=== PATIENT | male | born 1955 | race Caucasian/White ===

== ENCOUNTER 2016-08-25 10:18 | Observation (INO) | payer OTHER ==
[2016-08-26] MEDS ORDERED: FLOMAX0.4 MG PO (09:55)
[2016-08-26] MEDS ORDERED: OMEPRAZOLE20 MG PO (09:55)
[2016-08-26] MEDS ORDERED: LOTREL 5-20 MG1 EACH PO (09:56)
[2016-08-26] MEDS ORDERED: PROSCAR5 MG PO (09:56)
[2016-08-26] MEDS ORDERED: LORTAB 10-3251 EACH PO (09:59)
[2016-08-26] MEDS ORDERED: CIPRO500 MG PO (10:00)
--- NOTE | 2016-08-26 11:04 | NUR ---
0900 IV TO LEG BAG TEACHING DONE
[2016-09-01] MEDS ORDERED: FLOMAX0.4 MG PO (10:06)
[2016-09-01] MEDS ORDERED: OMEPRAZOLE20 MG PO (10:07)
[2016-09-01] MEDS ORDERED: PROSCAR5 MG PO (10:07)
[2016-09-01] MEDS ORDERED: LORTAB 10-3251 EACH PO (10:08)
[2016-09-01] MEDS ORDERED: LOTREL 5-20 MG1 EACH PO (10:08)
[2016-09-01] MEDS ORDERED: CIPRO500 MG PO (10:09)
== END 2016-08-26 10:00 | disposition home or self-care (01) ==
LOC: SDC 10:18 → MED 15:51
PROVIDERS: ADMIT Internal Medicine
DX: C61 Malignant neoplasm of prostate (principal); N40.1 Benign prostatic hyperplasia with lower urinary tract symptoms; R35.1 Nocturia; R35.0 Frequency of micturition; N32.89 Other specified disorders of bladder; I10 Essential (primary) hypertension; K21.9 Gastro-esophageal reflux disease without esophagitis; Z87.891 Personal history of nicotine dependence; Z80.42 Family history of malignant neoplasm of prostate; Z79.899 Other long term (current) drug therapy; Z98.890 Other specified postprocedural states
CPT/HCPCS: 96366; 96375; 96376; G0378; J1580; J2704